=== PATIENT | male | born 1940 | race Caucasian/White ===

== ENCOUNTER 2018-05-15 06:00 | Day surgery (SDC) | payer MEDICARE, BC ==
[~2018-05-15 06:00] MED LIST: Dextrose 5%-0.45% NaCl 1,000 ML IV SCH; Sodium Chloride 0.9% 10 ML Syringe FLUSH PRN
[2018-05-15] MEDS ORDERED: fentaNYL 100 MCG/2 ML SDV IV ONE ×3 (06:01→07:11)
[2018-05-15] MEDS ORDERED: Midazolam 1 MG/ML 2 ML SDV IV ONE ×6 (06:01→07:24)
[2018-05-15] MEDS ORDERED: Midazolam 1 MG/ML 2 ML SDV ONE (06:17)
[2018-05-15] MEDS ORDERED: fentaNYL 100 MCG/2 ML SDV ONE (06:18)
--- NOTE | 2018-05-15 09:18 | OR ---
DATE: 05/15/2018 PROCEDURES: Total colonoscopy, narrow-band imaging, and multiple cold snare polypectomies. INSTRUMENT USED: CF-H180 AL Olympus video colonoscope. PREMEDICATIONS: Fentanyl 100 mcg intravenous, Versed 3.5 mg intravenous. Nasal O2 cannula. The procedure was done under pulse oximetry, BP recording, and nuclear monitoring technician. INDICATION: Screening colonoscopic examination is done for detection of any polypoid lesions and removal. Endoscopic hemostasis therapy if needed. DESCRIPTION OF PROCEDURE: Initial rectal exam showed external hemorrhoidal tags. Rigid anoscopy showed moderate-sized internal hemorrhoids without bleeding from them. The colonoscope was passed with ease. Scattered diverticula were noted in the distal left colon along with deformity. In the distal descending colon, 3-mm sized benign-appearing polyp was noted. Cold snare polypectomy was done. The polyp was retrieved and sent for histopathology. There was some amount of fecal material that had to be aspirated. The scope was passed with ease up to the ileocecal area. Photographs were taken of the normal-appearing cecum identified by landmarks of appendiceal orifice and double-bulged ileocecal folds. No bleeding was noted from any of the visualized areas at the commencement of the examination. No stricture. Multiple angiodysplastic areas were noted without bleeding from them in the distal as well as proximal transverse colon. Photographs were taken of the descending colon angiodysplastic area. No evidence of diffuse inflammatory bowel disease in the form of friability, contact bleeding, or ulcerations. A 3-mm sized benign-appearing polyp was noted in the ascending colon. Cold snare polypectomy was done. The tissue was retrieved and sent for histopathology. Probing the proximal sides of folds and flexures, using adequate distention and clearing up the stool material, withdrawal of the scope was made. No bleeding was noted from any of the visualized areas at the completion of examination. IMPRESSION: 1. External and internal hemorrhoids. 2. Diverticulosis. 3. Multiple colonic polyps. 4. Angiodysplasia. The patient tolerated the procedure well. [facility] /[id number]
== END 2018-05-15 09:46 | disposition home or self-care (01) ==
LOC: DL.ENDO 06:00
PROVIDERS: ATTEND Internal Medicine Gastroenterology
DX: Z12.11 Encounter for screening for malignant neoplasm of colon (principal); D12.2 Benign neoplasm of ascending colon; K63.5 Polyp of colon; K64.4 Residual hemorrhoidal skin tags; K64.8 Other hemorrhoids; K57.30 Diverticulosis of large intestine without perforation or abscess without bleeding; K55.20 Angiodysplasia of colon without hemorrhage; I10 Essential (primary) hypertension; E66.09 Other obesity due to excess calories; E78.00 Pure hypercholesterolemia, unspecified; Z87.19 Personal history of other diseases of the digestive system
CPT/HCPCS: 45385; J2250; J3010; J7042; 88305